=== PATIENT | female | born 1960 | race American Indian/Alaskan Native ===

== ENCOUNTER 2016-12-01 03:47 | Emergency (ER) | payer MEDICARE ==
[2016-12-01] MEDS ORDERED: PERCOCET 5/325 PO ONE (07:29)
--- NOTE | 2016-12-01 07:34 | Emergency Department Report ---
ED General Adult HPI - General Chief complaint: Pain General Stated complaint: ARTHRITIS PAIN Time Seen by Provider: 12/01/16 07:27 Source: patient, family Mode of arrival: Wheelchair Limitations: No Limitations - History of Present Illness -: Gradual Location: upper extremity, lower extremity Radiation: non-radiation Severity scale (0 -10): 10 Quality: constant Consistency: constant Improves with: medication (out of meds) Worsens with: none Associated Symptoms: denies other symptoms. denies: confusion, chest pain, cough, diaphoresis, headaches, loss of appetite, malaise, nausea/vomiting, rash , shortness of breath, syncope, weakness - Related Data Home Medications Medication Instructions Recorded Confirmed Last Taken Gabapentin [Neurontin] 600 mg PO BID 12/01/16 12/01/16 2 Weeks Ago HYDROcodone/APAP 10-325 [[place] 1 each PO Q6HR PRN 12/01/16 12/01/16 2 Weeks Ago 10/325] Oxycodone HCl [Oxycontin] 80 mg PO Q8HR 12/01/16 12/01/16 2 Weeks Ago Oxycodone HCl/Acetaminophen 1 each PO Q6HR PRN 12/01/16 12/01/16 2 Weeks Ago [Percocet 10/325 mg] methylPREDNISolone 4 mg PO DAILY 12/01/16 12/01/16 2 Weeks Ago Previous Rx's Medication Instructions Recorded Last Taken Type Gabapentin [Neurontin] 600 mg PO BID #28 tablet 12/01/16 Unknown Rx Oxycodone HCl/Acetaminophen 1 each PO Q12H PRN #20 tablet 12/01/16 Unknown Rx [Percocet 10/325 mg] predniSONE [Deltasone] 40 mg PO QDAY #10 tab 12/01/16 Unknown Rx Allergies Allergy/AdvReac Type Severity Reaction Status Date / Time hydrocodone Allergy Itching Verified 12/01/16 03:56 ED Review of Systems ROS: Stated complaint: ARTHRITIS PAIN Other details as noted in HPI Comment: All other systems reviewed and negative Constitutional: no symptoms reported, see HPI. denies: chills, diaphoresis, fever, malaise Eyes: as per HPI. denies: eye pain ENT: as per HPI. denies: ear pain, throat pain Respiratory: no symptoms reported, see HPI. denies: cough, orthopnea Cardiovascular: as per HPI. denies: chest pain, palpitations, dyspnea on exertion, orthopnea, edema, syncope, paroxysmal nocturnal dyspnea Endocrine: no symptoms reported, see HPI. denies: excessive sweating, flushing , intolerance to cold, intolerance to heat Gastrointestinal: as per HPI. denies: abdominal pain, nausea, vomiting Genitourinary: as per HPI. denies: urgency, dysuria Musculoskeletal: as per HPI. denies: back pain Skin: as per HPI. denies: rash, lesions Neurological: as per HPI. denies: headache, weakness Psychiatric: as per HPI. denies: anxiety, depression Hematological/Lymphatic: as per HPI. denies: easy bleeding ED Past Medical Hx - Past Medical History Previous Medical History?: Yes Hx Arthritis: Yes (RHEUMATOID / OSTEO) - Surgical History Past Surgical History?: Yes Additional Surgical History: TOE - Family History Family history: no significant - Social History Smoking Status: Never Smoker Substance Use Type: Alcohol - Medications Home Medications: Home Medications Medication Instructions Recorded Confirmed Last Taken Type Gabapentin [Neurontin] 600 mg PO BID 12/01/16 12/01/16 2 Weeks Ago History Gabapentin [Neurontin] 600 mg PO BID #28 tablet 12/01/16 Unknown Rx HYDROcodone/APAP 10-325 [[place] 1 each PO Q6HR PRN 12/01/16 12/01/16 2 Weeks Ago History 10/325] Oxycodone HCl [Oxycontin] 80 mg PO Q8HR 12/01/16 12/01/16 2 Weeks Ago History Oxycodone HCl/Acetaminophen 1 each PO Q12H PRN #20 tablet 12/01/16 Unknown Rx [Percocet 10/325 mg] Oxycodone HCl/Acetaminophen 1 each PO Q6HR PRN 12/01/16 12/01/16 2 Weeks Ago History [Percocet 10/325 mg] methylPREDNISolone 4 mg PO DAILY 12/01/16 12/01/16 2 Weeks Ago History predniSONE [Deltasone] 40 mg PO QDAY #10 tab 12/01/16 Unknown Rx ED Physical Exam - General Limitations: No Limitations General appearance: alert, other (tearful w pain) - Head Head exam: Present: atraumatic - Eye Eye exam: Present: normal appearance, PERRL - ENT ENT exam: Present: normal exam, normal orophraynx, mucous membranes moist - Neck Neck exam: Present: normal inspection - Respiratory Respiratory exam: Present: normal lung sounds bilaterally. Absent: respiratory distress, wheezes, rales, rhonchi, stridor, chest wall tenderness, accessory muscle use, decreased breath sounds, prolonged expiratory - Cardiovascular Cardiovascular Exam: Present: regular rate (90), normal heart sounds - GI/Abdominal GI/Abdominal exam: Present: soft - Rectal Rectal exam: Present: deferred - Extremities Exam Extremities exam: Present: tenderness, joint swelling, other (deformity of RA with nodules and severely arthritic hand bilateral. movement is slow and deliberate dt her chronic pain and being off meds about 2.5 w due to in family. she appears to be legitimate pain. has not been here before for RX. ). Absent: normal inspection, full ROM, normal capillary refill, pedal edema, calf tenderness - Back Exam Back exam: Absent: full ROM, paraspinal tenderness, vertebral tenderness - Neurological Exam Neurological exam: Present: alert, altered, oriented X3, CN II-XII intact, abnormal gait (debility) - Psychiatric Psychiatric exam: Present: normal mood, other (cooperative) - Skin Skin exam: Present: warm, dry, intact, normal color ED Course Vital Signs 12/01/16 12/01/16 03:56 07:43 Temperature 98.7 F Pulse Rate 99 H Respiratory 18 16 Rate Blood Pressure 119/78 O2 Sat by Pulse 100 Oximetry - Reevaluation(s) Reevaluation #1: 12/01/16 07:32 Discussed with attending. Very pleasant AA female who is debilitated w RA and OA. She sees pcp and pain management. Due to deaths in fam she has not been to them in over a month And is in generalized pain w RA/OA We discussed her pain contract. I informed her to call them Saturday to let them know she was here and see if they can see her before her scheduled visit in 2 weeks. VSS. HR 90 on exam. medicated here. Reevaluation #2: 12/01/16 0740 Reeval p pain med and pt reports some relief. Again reviewed poc and follow up w pcp and pain MD for ongoing care. She was pleasant and appreciative of assistance this am. Attending updated Pt home w family. ED Medical Decision Making - Medical Decision Making chronic pain out of meds discussed with MD see note. VSS. No CP. No SOB. Critical care attestation.: If time is entered above; I have spent that time in minutes in the direct care of this critically ill patient, excluding procedure time. ED Disposition Clinical Impression: Chronic pain, Rheumatoid arteritis, Osteoarthritis Disposition: TO HOME OR SELFCARE Is pt being admited?: No Does the pt Need Aspirin: No Condition: Stable Instructions: Osteoarthritis (ED), Rheumatoid Arthritis (ED) Additional Instructions: call MD on Saturday for follow up appnt sooner than your scheduled 2 week appnt. take meds as written. do not take more than prescribed. do not take meds and do anything that requires you to be alert. Prescriptions: Gabapentin [Neurontin] 600 mg PO BID #28 tablet Oxycodone HCl/Acetaminophen [Percocet 10/325 mg] 1 each PO Q12H PRN #20 tablet PRN Reason: Pain predniSONE [Deltasone] 40 mg PO QDAY #10 tab Referrals: PRIMARY CARE, [Primary Care Provider] - 3-5 Days Time of Disposition: 07:37
[2016-12-01] MEDS ORDERED: DELTASONE PO ONE (07:36)
[2016-12-01 08:50] VITALS: BP 116/74
== END 2016-12-01 08:40 | disposition home or self-care (01) ==
LOC: ED 03:47
DX: M06.9 Rheumatoid arthritis, unspecified (principal); M19.90 Unspecified osteoarthritis, unspecified site
CPT/HCPCS: 99282; J7512

== ENCOUNTER 2017-10-23 16:39 | Inpatient (IN) | payer MEDICARE ==
[2017-10-23] MEDS ORDERED: SODIUM CHLORIDE FLUSH SYRINGE 10 ML IV PRN (17:01)
[2017-10-23] MEDS ORDERED: MORPHINE IV PRN (17:01)
[2017-10-23] MEDS ORDERED: PROVENTIL IH PRN (17:01)
[2017-10-23] MEDS ORDERED: TYLENOL PO PRN (17:01)
[2017-10-23] MEDS ORDERED: ZOFRAN IV PRN (17:01)
--- NOTE | 2017-10-23 17:01 | History and Physical Report ---
History of Present Illness Chief complaint: My doctor told me to come in History of present illness: 57 YO Female with RA with deformity directly admitted at the request of Dr. Aldana. Pt was seen and evaluated by her PCP today and found to have abdominal pain and suspected pyelonephritis. Pt seen and evaluated upon arrival. Pt complains of bilateral flank pain, 10/10, constant, worsened with movement, not relieved with rest. PT denies fever, chills, CP, Palpitation, NVD, Hematuria, BRBPR, Trauma, productive cough, skin rash, or recent ill contacts. No reported nursing events. Past History Past Medical History: arthritis Past Surgical History: No surgical history Social history: single. denies: smoking, alcohol abuse, prescription drug abuse Family history: no significant family history (reviewed) Medications and Allergies Allergies Allergy/AdvReac Type Severity Reaction Status Date / Time hydrocodone Allergy Itching Verified 12/01/16 03:56 Home Medications Medication Instructions Recorded Confirmed Last Taken Type Gabapentin [Neurontin] 600 mg PO BID 12/01/16 12/01/16 2 Weeks Ago History ~11/17/16 Gabapentin [Neurontin] 600 mg PO BID #28 tablet 12/01/16 Unknown Rx HYDROcodone/APAP 10-325 [[place] 1 each PO Q6HR PRN 12/01/16 12/01/16 2 Weeks Ago History 10/325] ~11/17/16 Oxycodone HCl [Oxycontin] 80 mg PO Q8HR 12/01/16 12/01/16 2 Weeks Ago History ~11/17/16 Oxycodone HCl/Acetaminophen 1 each PO Q12H PRN #20 tablet 12/01/16 Unknown Rx [Percocet 10/325 mg] Oxycodone HCl/Acetaminophen 1 each PO Q6HR PRN 12/01/16 12/01/16 2 Weeks Ago History [Percocet 10/325 mg] ~11/17/16 methylPREDNISolone 4 mg PO DAILY 12/01/16 12/01/16 2 Weeks Ago History ~11/17/16 predniSONE [Deltasone] 40 mg PO QDAY #10 tab 12/01/16 Unknown Rx Review of Systems Constitutional: no weight loss, no weight gain, no fever, no chills Ears, nose, mouth and throat: no ear pain, no ear discharge, no tinnitis, no decreased hearing, no nose pain, no nasal congestion, no nasal discharge Breasts: no change in shape, no swelling, no mass Cardiovascular: no chest pain, no orthopnea, no palpitations, no rapid/ irregular heart beat Respiratory: no excessive sputum, no hemoptysis, no shortness of breath Gastrointestinal: abdominal pain, no nausea, no vomiting, no diarrhea, no hematemesis, no coffee ground emesis, no BRBPR, no melena, no loss of appetite Genitourinary Female: flank pain, no pelvic pain, no menorrhagia, no dysuria, no urinary frequency, no urgency, no stress incontinence Rectal: no pain, no incontinence, no bleeding Musculoskeletal: no neck stiffness, no neck pain, no shooting arm pain, no arm numbness/tingling, no low back pain Integumentary: no rash, no pruritis, no redness, no sores, no wounds, no jaundice, no boils Neurological: no transient paralysis, no paralysis, no weakness, no parathesias , no numbness, no tingling, no seizures, no syncope, no tremors Psychiatric: no anxiety, no memory loss, no change in sleep habits, no sleep disturbances, no insomnia, no hypersomnia Endocrine: no cold intolerance, no heat intolerance, no polyphagia, no excessive thirst Hematologic/Lymphatic: no easy bruising, no easy bleeding Allergic/Immunologic: no urticaria, no allergic rhinitis Exam - Constitutional General appearance: Present: no acute distress, well-nourished - EENT Eyes: Present: PERRL ENT: hearing intact, clear oral mucosa - Neck Neck: Present: supple, normal ROM - Respiratory Respiratory effort: normal Respiratory: bilateral: CTA - Cardiovascular Heart Sounds: Present: S1 & S2. Absent: rub, click - Extremities Extremities: pulses symmetrical, No edema Peripheral Pulses: within normal limits - Abdominal General gastrointestinal: Present: soft, non-tender, non-distended, normal bowel sounds Female genitourinary: Present: normal - Integumentary Integumentary: Present: clear, warm, dry - Musculoskeletal Musculoskeletal: gait normal, strength equal bilaterally - Psychiatric Psychiatric: appropriate mood/affect, intact judgment & insight - Neurologic Neurologic: CNII-XII intact, moves all extremities Results - Labs CBC & Chem 7: 10/23/17 18:22 10/23/17 18:22 Assessment and Plan - Patient Problems (1) Abdominal pain Current Visit: Yes Status: Acute Qualifiers: Abdominal location: generalized Qualified Code(s): R10.84 - Generalized abdominal pain Plan to address problem: CT ABdomen/Pelvis, Urinalysis, CBC, CMP, serial abdominal exam, Chest X ray, (2) Arthritis Current Visit: Yes Status: Acute Plan to address problem: pain control, supportive care (3) DVT prophylaxis Current Visit: Yes Status: Acute Plan to address problem: SCD to BLE while in bed
[2017-10-23 18:47] LABS: Basophils % (Auto) 0.3 % (0.0-1.8); Eosinophils % (Auto) 0.4 % (0.0-4.3); Hematocrit 36.5 % (30.3-42.9); Hemoglobin 11.7 gm/dl (10.1-14.3); Lymphocytes # (Auto) 0.9 K/mm3 (1.2-5.4); Mean Corpuscular HGB Conc 32 % (30-34); Mean Corpuscular Hemoglobin 29 pg (28-32); Mean Corpuscular Volume 89 fl (79-97); Monocytes % (Auto) 1.1 % (0.0-7.3); Platelet Count 154 K/mm3 (140-440); Red Blood Count 4.11 M/mm3 (3.65-5.03); Red Cell Distribution Width 17.1 % (13.2-15.2)
--- NOTE | 2017-10-23 18:58 | XRay Report ---
FINAL REPORT EXAM: XR CHEST 1V AP HISTORY: dypsnea TECHNIQUE: Frontal chest radiograph. PRIORS: None. FINDINGS: The cardiomediastinal silhouette is normal. No focal consolidation. Calcified left hilar lymph nodes and left pulmonary granuloma are seen. The lungs are hyperinflated. No pleural effusion. No pneumothorax. No acute osseous abnormality. Old deformity of the left humeral head likely related to prior trauma. IMPRESSION: No acute cardiopulmonary process. Findings of COPD.
[2017-10-23 19:06] LABS: Alanine Aminotransferase 15 units/L (7-56); Albumin 3.4 g/dL (3.9-5); BUN/Creatinine Ratio 14; Blood Urea Nitrogen 7 mg/dL (7-17); Hemolysis Index 18
[2017-10-23 19:07] LABS: Alanine Aminotransferase 15 units/L (7-56); Albumin 3.4 g/dL (3.9-5)
[2017-10-23 19:13] LABS: Bilirubin,Direct < 0.2 mg/dL (0-0.2)
[2017-10-23] MEDS: PERCOCET 5/325 PO PRN (23:42)
[2017-10-23] MEDS: SODIUM CHLORIDE FLUSH SYRINGE 10 ML IV SCH (23:43)
--- NOTE | 2017-10-24 04:03 | Cat Scan Report ---
FINAL REPORT PROCEDURE: CT ABDOMEN PELVIS W CON TECHNIQUE: Computerized axial tomography of the abdomen and pelvis was performed after the IV injection of iodinated nonionic contrast. HISTORY: ab pain COMPARISON: No prior studies are available for comparison. FINDINGS: Visualized lower thorax: No significant abnormality. Liver: Normal size and attenuation. Spleen: Normal size and attenuation. There are calcified granulomas in the spleen. Gallbladder and biliary system: Normal. Pancreas: Normal. Adrenals: Normal. Kidneys: There are bilateral kidney stones. There is no hydronephrosis.. GI tract: There is no bowel obstruction, colitis or enteritis. The appendix is normal.. Lymph nodes and mesentery: Normal. Vasculature: There is calcified plaque in the abdominal aorta. There is no aneurysm or dissection.. Bladder: Normal. Reproductive organs: There are calcified uterine fibroids.. Peritoneum: There is no ascites or free air, abscess or adenopathy.. Musculoskeletal structures: No significant abnormality. Other: None. IMPRESSION: There are bilateral kidney stones. There is no hydronephrosis.. There is no bowel obstruction, colitis or enteritis. The appendix is normal.. There is calcified plaque in the abdominal aorta. There is no aneurysm or dissection.. There are calcified uterine fibroids.. There is no ascites or free air, abscess or adenopathy..
[2017-10-24] MEDS: PERCOCET 5/325 PO PRN ×3 (07:50→21:14)
[2017-10-24 10:52] LABS: Bilirubin,Urine NEG (Negative); Blood,Urine NEG (Negative); Color,Urine Yellow (Yellow); Mucus,Urine FEW /HPF; Protein,Urine <15 mg/dL mg/dL (Negative); Urobilinogen,Urine < 2.0 mg/dL (<2.0)
[2017-10-24] MEDS ORDERED: NON-FORMULARY (Gabapentin [Neurontin] 600 MG) PO SCH (12:30)
[2017-10-24] MEDS ORDERED: METHYLPREDNISOLONE 4 MG PO SCH (12:30)
[2017-10-24] MEDS: NEURONTIN PO SCH ×2 (13:39→21:11)
[2017-10-24] MEDS: MEDROL PO SCH (13:39)
[2017-10-24] MEDS: SODIUM CHLORIDE FLUSH SYRINGE 10 ML IV SCH ×2 (13:40→21:12)
--- NOTE | 2017-10-24 14:42 | Progress Note ---
Assessment and Plan / Abdominal pain due to b/l nephrolithiasis CT ABdomen/Pelvis showed no hydronephrosis, Normal Urinalysis, cont supportive care with iv fluid and as needed pain meds /Rheumatoid Arthritis cont low dose home steroid pain control, supportive care / DVT prophylaxis SCD to BLE while in bed Brief History: Pt was seen and evaluated by dr simons in the clinic and found to have abdominal pain and suspected pyelonephritis. She was sent to ER for further evaluation. Radiological data: CT abdomen/pelvis Hospitalist Physical exam: GENERAL: well-developed AAF lying on bed appeared to be in no discomfort. HEENT: Normocephalic. Atraumatic. No conjunctival congestion or icterus. Patient has moist mucous membranes. NECK: Supple. Trachea midline. CHEST/LUNGS: Clear to auscultated bilaterally, breathing nonlabored. No wheezes crackles or rhonchi. HEART/CARDIOVASCULAR: Regular in rate and rhythm. S1 and S2 positive. ABDOMEN: Abdomen is soft, b/l flank tenderness. Patient has normal bowel sounds. SKIN: There is no rash. Warm and dry. NEURO: No focal motor deficit. Follows command. MUSCULOSKELETAL: b/l UE joint deformint mainly on hand EXTRIMITY: No edema, no cyanosis or clubbing. PSYCH: Cooperative. Subjective Date of service: 10/24/17 Interval history: Patient seen and examined. Medical records and medication list reviewed. No acute event overnight noted by the RN. Patient denies any chest pain or difficulty breathing. Patient is tolerating diet but has b/l lumber pain Discussed plan of care at bedside with patient. Objective - Constitutional Vitals: Vital Signs - 12hr 10/24/17 10/24/17 07:52 08:45 Temperature 98.2 F Pulse Rate 89 Respiratory 19 Rate Blood Pressure 128/86 O2 Sat by Pulse 98 97 Oximetry - Labs CBC & Chem 7: 10/23/17 18:22 10/25/17 11:20 Labs: Abnormal lab results 10/23/17 10/23/17 10/23/17 Range/Units 18:22 18:22 18:22 WBC 4.0 L (4.5-11.0) K/mm3 RDW 17.1 H (13.2-15.2) % Lymph # 0.9 L (1.2-5.4) K/mm3 Seg Neutrophils % 76.2 H (40.0-70.0) % Creatinine 0.5 L (0.7-1.2) mg/dL Albumin 3.4 L 3.4 L (3.9-5) g/dL Ur Specific [place] (1.003-1.030) 10/24/17 Range/Units 10:10 WBC (4.5-11.0) K/mm3 RDW (13.2-15.2) % Lymph # (1.2-5.4) K/mm3 Seg Neutrophils % (40.0-70.0) % Creatinine (0.7-1.2) mg/dL Albumin (3.9-5) g/dL Ur Specific [place] 1.049 H (1.003-1.030)
[2017-10-25] MEDS: PERCOCET 5/325 PO PRN ×2 (01:20→10:23)
[2017-10-25 08:05] VITALS: BP 124/78
[2017-10-25] MEDS: NEURONTIN PO SCH (10:13)
[2017-10-25] MEDS: MEDROL PO SCH (10:13)
[2017-10-25] MEDS: SODIUM CHLORIDE FLUSH SYRINGE 10 ML IV SCH (10:14)
--- NOTE | 2017-10-25 10:22 | Query- Abdominal Pain ---
Deabryant Hodge___Sha Date:____10/25/2017 Rejector/CDS:___meg Phone#:_[phone] Exercise your independent professional judgment when responding to this query. Questions asked do not imply that a particular answer is desired or expected. We greatly appreciate your clarification on this issue. Clinical Documentation States: 57 YO Female with RA with deformity directly admitted at the request of Dr. Aldana. Pt was seen and evaluated by her PCP today and found to have abdominal pain and suspected pyelonephritis. Taken from H&P note () on 10/23/17. Assessment and Plan: Abdominal pain Clinical Findings Show: Ct scan Impression shows bilateral kidney stones with no hydronephrosis and calcified uterine fibroids. The rest is unremarkable. Please specify the etiology of Abdominal Pain: [ ]Appendicitis, Acute [ ] Intestinal Obstruction [ ]Diverticulitis, Acute [ ] Uremia [ ]Pancreatitis, Acute [ ] Thoracic Aortic Aneurysm [ ]Peritonitis [ ] Urinary Tract Infection [ ]Ulcerative Colitis [ ] Pelvic Inflammatory Disease [ ]Cholecystitis [ ] Cystitis [ ]Cholangitis [ ] Pyelonephritis [ ]Viral Gastroenteritis [ ] Renal Stones [ ]Gastroenteritis, Bacterial [ ] Retroperitoneal Infection [ ]Gastritis [ ] Shingles [ ]Peritoneal Irritation [ ] Mesenteric Artery Occlusion [ ]Peritoneal Inflammation [ ] Trauma(please specify): _ [ ]Peritoneal Infection [ ] Irritable Bowel Syndrome [ ]Constipation [ ] Hernia [ ]GERD [ ] Cholelithiasis [ ]Peptic Ulcer [ ] Vascular Insufficiency of Intestine [ ]Diabetic Ketoacidosis [ ]Cancer [ ]Other: [ ]Unable to determine [ ]Comment/Explanation: Present on Admission: [ ] Yes (Y) [ ] Clinically undeterminable (W) [ ] No(N) Please also document response in your Progress Notes and/or Discharge Summary and indicate if the condition was present on admission. MALOUD
--- NOTE | 2017-10-25 10:26 | Query- Nutrition ---
Haris Hodge____Sha Date:___10/25/2017 Commission Broker/CDS:___meg Phone#:__[phone] Exercise your independent professional judgment when responding to query. Questions asked do not imply a particular answer is desired or expected. We greatly appreciate your clarification on this issue. Clinical Documentation States: 57 YO Female with RA with deformity directly admitted at the request of Dr. Aldana. Pt was seen and evaluated by her PCP today and found to have abdominal pain and suspected pyelonephritis. Taken from H&P note () on 10/23/17. Assessment and Plan: Abdominal pain Arthritis Clinical Findings Show: 10/23/17 Sr.Albumin 3.4 L Please select the most appropriate option 3 [] Mild Malnutrition [] Mild - Moderate Malnutrition [] Moderate - Severe Malnutrition [] Severe Malnutrition Serum Albumin 2.8 to 3.4 g/dl or Pre-albumin 5 to 17 mg/dl1,2 Inadequate nutritional intake1,2,3,4 NPO > 5 days Weight loss: 5% in 1 month or 7.5% in 3 months or 10% in 6 months1, 3,4 BMI 16 to 18.4 or Weight <90% of ideal body weight1,2,3,4 Serum Albumin < 2.8 g/ dl1,2 Lymphocytes < 1500/ L2 Inadequate nutritional intake3, high stress e.g. major trauma, sepsis,pancreatitis, hummel etc. Decubitus ulcers1,2, , skin breakdown2, easy hair pluckability2 Weight <80% standard for height2 Triceps skin fold <3 mm2 Mid-arm muscle circumference <15 cm2 Creatinine-height index <60% standard2 [ ] Cachexia [ ] Emaciated w/Malnutrition [ ] Other: [ ] Unable to determine [ ] Comment/Explanation: Present on Admission: [ ] Yes (Y) [ ] Clinically undeterminable (W) [ ] No ( N) Please also document response in your Progress Notes and/or Discharge Summary and indicate if the condition was present on admission. MTDD
[2017-10-25] MEDS ORDERED: NACL 0.9% 1000 ML 1,000 ML IV SCH (11:00)
[2017-10-25 11:54] LABS: BUN/Creatinine Ratio 15; Blood Urea Nitrogen 9 mg/dL (7-17); Calcium 8.8 mg/dL (8.4-10.2); Hemolysis Index 10
--- NOTE | 2017-10-25 14:51 | Discharge Summary ---
Providers - Providers Date of Admission: 10/23/17 17:47 Date of discharge: 10/25/17 Attending physician: BAUTISTA VILLASEÑOR Primary care physician: HOWIE SIMONS Hospitalization Hospital course: Brief History: Pt was seen and evaluated by dr simons in the clinic and found to have abdominal pain and suspected pyelonephritis. She was sent to ER for further evaluation. Discharge diagnosis: / Abdominal pain due to b/l nephrolithiasis CT ABdomen/Pelvis showed no hydronephrosis, Normal Urinalysis, cont supportive care with iv fluid and as needed pain meds /Rheumatoid Arthritis cont low dose home steroid pain control, supportive care / DVT prophylaxis SCD to BLE while in bed Radiological data: CT abdomen/pelvis Hospitalist Physical exam: GENERAL: well-developed AAF lying on bed appeared to be in no discomfort. HEENT: Normocephalic. Atraumatic. No conjunctival congestion or icterus. Patient has moist mucous membranes. NECK: Supple. Trachea midline. CHEST/LUNGS: Clear to auscultated bilaterally, breathing nonlabored. No wheezes crackles or rhonchi. HEART/CARDIOVASCULAR: Regular in rate and rhythm. S1 and S2 positive. ABDOMEN: Abdomen is soft, b/l flank tenderness. Patient has normal bowel sounds. SKIN: There is no rash. Warm and dry. NEURO: No focal motor deficit. Follows command. MUSCULOSKELETAL: b/l UE joint deformint mainly on hand EXTRIMITY: No edema, no cyanosis or clubbing. PSYCH: Cooperative. Disposition: DC-01 TO HOME OR SELFCARE Time spent for discharge: 32 minutes Core Measure Documentation - Palliative Care Palliative Care/ Comfort Measures: Not Applicable - Core Measures Any of the following diagnoses?: none Exam - Constitutional Vitals: Temp Pulse Resp BP Pulse Ox 98.0 F 87 19 124/78 99 10/25/17 07:58 10/25/17 07:58 10/25/17 07:58 10/25/17 07:58 10/25/17 07:58 Plan Activity: advance as tolerated Weight Bearing Status: Non-Weight Bearing Diet: low fat, low salt Follow up with: HOWIE SIMONS MD [Primary Care Provider] - 7 Days
== END 2017-10-25 16:29 | disposition home health service (06) | DRG 694 ==
LOC: 3A 16:39 → UNDOADMIN 16:39 → 3A 17:47
PROVIDERS: ADMIT Internal Medicine; ATTEND Internal Medicine
DX: N20.0 Calculus of kidney (principal); M06.9 Rheumatoid arthritis, unspecified
CPT/HCPCS: 36415; 71045; 74177; 80048; 80053; 80074; 81001; 85025; 87116; 93005; 93010; 99406; J2405; J7509; Q9967

== ENCOUNTER 2018-08-01 09:33 | Outpatient (CLI) | payer MEDICARE, OTHER | END 2018-08-01 09:34 | disposition home or self-care (01) | LOC: LABHHL 09:33 | PROVIDERS: ATTEND Surgery | DX: N63.23 Unspecified lump in the left breast, lower outer quadrant (principal); K21.9 Gastro-esophageal reflux disease without esophagitis; M19.90 Unspecified osteoarthritis, unspecified site; F17.200 Nicotine dependence, unspecified, uncomplicated | CPT/HCPCS: 88305; 88341; 88342; 88368 ==

== ENCOUNTER 2018-08-15 11:05 | Outpatient (CLI) | payer MEDICARE ==
--- NOTE | 2018-08-15 12:39 | History and Physical Report ---
History of Present Illness Date of examination: 08/15/18 Chief complaint: lt. breast mass Medications and Allergies Allergies Allergy/AdvReac Type Severity Reaction Status Date / Time hydrocodone Allergy Itching Verified 12/01/16 03:56 morphine AdvReac Nausea Verified 10/24/17 08:52 Home Medications Medication Instructions Recorded Confirmed Last Taken Type Gabapentin [Neurontin] 600 mg PO BID #28 tablet 10/25/17 Unknown Rx Oxycodone HCl/Acetaminophen 1 each PO Q12H PRN #7 tablet 10/25/17 Unknown Rx [Percocet 10/325 mg] predniSONE [Deltasone] 40 mg PO QDAY #10 tab 10/25/17 Unknown Rx
--- NOTE | 2018-08-15 12:41 | Procedure Note ---
Date of procedure: 08/15/18 Pre-op diagnosis: lt breast mass Post-op diagnosis: same Procedure: u/s guided lt breast bx Findings: solid tissue Anesthesia: local Surgeon: GARRISON SALAZAR Estimated blood loss: none Pathology: list (lt breast tissue) Specimen disposition: to lab Condition: stable Disposition: same day
--- NOTE | 2018-08-15 13:49 | Mammography Report ---
Ultrasound-guided left breast biopsy, marker placement, 2 view mammogram: Breast imaging demonstrates an irregular shaped hypoechoic mass in the 7:00 location 2 cm from the nipple measuring approximately 3 cm. The skin was cleansed and draped. 1% lidocaine and 2% lidocaine with epinephrine utilized for local anesthesia. A 13-gauge guide was introduced under ultrasound guidance through which a 14-gauge disposable Bard biopsy device was used to take multiple specimens through the targeted lesion. A marker was left in place. The entrance site was bandaged with a waterseal. The axilla was imaged demonstrating several enlarged abnormal appearing lymph nodes. The area was draped and cleansed and 1% lidocaine used for local anesthesia. Through a small skin nicola an 18-gauge Achieve biopsy device was utilized in attempts to biopsy one of the lymph nodes. Due to excessive mobility of the lymph nodes and the adjacent vascular structures I was unable to safely penetrate any of the identified lymph nodes for biopsy. A two-view orthogonal mammogram confirmed positioning of the marker and a spiculated and irregular shaped mass in the inferior breast. There is no patient complications. The patient was given followup instructions and discharged. Impression: 1. Successful breast biopsy. 2. Unsuccessful axillary lymph node biopsy.
== END 2018-08-15 11:06 | disposition home or self-care (01) ==
LOC: SPVWC 11:05
PROVIDERS: ATTEND Surgery
DX: C50.312 Malignant neoplasm of lower-inner quadrant of left female breast (principal); F17.210 Nicotine dependence, cigarettes, uncomplicated; M19.90 Unspecified osteoarthritis, unspecified site; K21.9 Gastro-esophageal reflux disease without esophagitis; M06.9 Rheumatoid arthritis, unspecified; Z79.899 Other long term (current) drug therapy; Z88.5 Allergy status to narcotic agent; Z88.8 Allergy status to other drugs, medicaments and biological substances
CPT/HCPCS: 38505; 76942; 88305; 88341; 88342; 88368

== ENCOUNTER 2018-09-03 12:40 | Outpatient (CLI) | payer MEDICARE ==
--- NOTE | 2018-09-04 09:04 | Magnetic Resonance Report ---
BILATERAL BREAST MRI WITHOUT AND WITH CONTRAST: 09/03/18 12:40:00 CLINICAL: Newly diagnosed left breast cancer. Status post ultrasound guided needle biopsy of a left breast mass on 08/15/18. Pathology: Invasive ductal carcinoma grade I, ER 100%, MO 0%, Ki-67 20%, HER-2 2+ positive, FISH pending. COMPARISON:07/30/18 bilateral mammogram and left breast ultrasound. TECHNIQUE: Axial 1.0-mm T1 without, axial high resolution 2.0-mm T2 and axial 1.0-mm dynamic Vibrant high-resolution postcontrast T1 fat saturation sequences on a 1.5 Lou magnet. The examination was performed with an 8 channel dedicated Sentinelle breast coil. Post processing with CAD and subtraction was performed on an Geron workstation. 10.0 cc of Multihance was injected without incident for the contrast portion of the exam. Consent was obtained prior to the administration of the contrast. FINDINGS: Right: Minimal background parenchymal enhancement. No mass or suspicious enhancement. Right axillary lymph nodes are not imaged because of body habitus. Left: Minimal background parenchymal enhancement. An irregular enhancing mass located at 6 o'clock 2 cm from the nipple and 4.4 cm from the chest wall corresponds to the known cancer. It measures 3.1 x 2.6 x 2.2 cm and demonstrates heterogeneous enhancement with mixed kinetics, 238% peak enhancement and 24% type III washout. No other mass or suspicious enhancement. The left nipple is retracted. Axillary lymph nodes are imaged because of body habitus. IMPRESSION: 1. A 3.1 cm known left breast cancer at 6 o'clock 2 cm from the nipple. 2. No other lesions are identified in either breast. 3. Axillary lymph nodes are not evaluated on this exam because of body habitus. BI-RADS 6 -- Known Cancer
== END 2018-09-03 12:41 | disposition home or self-care (01) ==
LOC: SPVIMAG 12:40
PROVIDERS: ATTEND Surgery
DX: C50.512 Malignant neoplasm of lower-outer quadrant of left female breast (principal); F17.200 Nicotine dependence, unspecified, uncomplicated; M19.90 Unspecified osteoarthritis, unspecified site; K21.9 Gastro-esophageal reflux disease without esophagitis
CPT/HCPCS: A9577; C8908; 77049

== ENCOUNTER 2018-09-05 11:52 | Outpatient (CLI) | payer MEDICARE ==
[2018-09-05 13:12] LABS: Blood Urea Nitrogen 10 mg/dL (7-17)
--- NOTE | 2018-09-05 16:24 | Cat Scan Report ---
CT CHEST WITH CONTRAST: 09/05/18 11:52:00 CLINICAL: Newly diagnosed left breast cancer. Comparison: None. TECHNIQUE: Volumetric acquisition and 1.25 mm scan reconstructions without contrast and after the uneventful intravenous injection of 100cc Omnipaque 300. Consent was obtained prior to the administration of contrast. FINDINGS: The thyroid is enlarged and the left lobe is larger than the right. A 2.4 x 1.5 cm nodule of the left inferior thyroid demonstrates nodular enhancement postcontrast. Acute additional tiny thyroid nodules. Moderate multilobar bullous emphysema. A 7 mm calcified granuloma of the left upper lobe. No other pulmonary nodule or mass.No pleural effusion. Normal heart and pulmonary vessels. Normal heart and aorta. No hilar or mediastinal lymphadenopathy. No pleural effusion. Normal trachea and esophagus. A 3.2 cm retroareolar left breast mass with a biopsy clip. Left axillary lymph node lymphadenopathy with a dominant 1.7 x 1.0 cm lymph node. The upper abdomen is unremarkable. No suspicious bone lesions. There is deformity of the left humeral head appears to be an old fracture deformity. The entire liver is included on the exam and is normal. Normal adrenal glands. IMPRESSION: 1. A 2.4 cm left thyroid nodule with suspicious nodular enhancement. Recommend thyroid ultrasound for further evaluation. 2. Left breast cancer and suspicious left axillary lymphadenopathy. 3. No evidence of pulmonary, hepatic or skeletal metastasis.
== END 2018-09-05 11:53 | disposition home or self-care (01) ==
LOC: CT 11:52
PROVIDERS: ATTEND Internal Medicine Hematology & Oncology
DX: C50.512 Malignant neoplasm of lower-outer quadrant of left female breast (principal); E04.1 Nontoxic single thyroid nodule; K21.9 Gastro-esophageal reflux disease without esophagitis; M19.90 Unspecified osteoarthritis, unspecified site
CPT/HCPCS: 36415; 71270; 82565; 84520

== ENCOUNTER 2019-03-16 14:29 | Outpatient (CLI) | payer MEDICARE ==
--- NOTE | 2019-03-16 15:27 | Mammography Report ---
DIGITAL DIAGNOSTIC MAMMOGRAM WITH CAD, -- 03/16/2019 INDICATION: Follow-up of the known cancer. TECHNIQUE: Digital left mammographic imaging was performed. This examination was interpreted with the benefit of Computer-aided Detection analysis. COMPARISON: 07/31/2018 FINDINGS: Breast Density: There are scattered areas of fibroglandular density. The biopsy proven spiculated subareolar cancer now measures 3.4 x 2.9 x 1.7 cm. This compares to 3.3 x 2.7 x 2.8 cm on the last exam. No new finding. Scattered benign calcifications. IMPRESSION: A known left breast cancer without significant change in size mammographically. Follow up recommendation: Surgical consult BI-RADS Category 6: Known Biopsy-Proven Malignancy. A "normal" or negative report should not discourage follow up or biopsy of a clinically significant f inding. A written summary of these findings will be mailed to the patient. The patient will be entered into a mammography reporting system which will generate a reminder letter for the patient's next appointmen t at the appropriate interval. According to the [employer], yearly mammograms are recommended starting at age 40 and continuing as long as a woman is in good health. Breast MRI is recommended for women with an karen roximately 20-25% or greater lifetime risk of breast cancer, including women with a strong family his tory of breast or ovarian cancer and women who have been treated for Hodgkin's disease. Signer Name: Baron Peacock MD Signed: 03/16/2019 3:22 PM Workstation Name: [id number]
== END 2019-03-16 14:30 | disposition home or self-care (01) ==
LOC: SPVWC 14:29
PROVIDERS: ATTEND Internal Medicine Hematology & Oncology
DX: C50.512 Malignant neoplasm of lower-outer quadrant of left female breast (principal); I10 Essential (primary) hypertension; K21.9 Gastro-esophageal reflux disease without esophagitis; F17.210 Nicotine dependence, cigarettes, uncomplicated; M06.9 Rheumatoid arthritis, unspecified

== ENCOUNTER 2021-06-16 11:36 | Emergency (ER) | payer MEDICARE ==
[2021-06-16] MEDS ORDERED: KETAMINE 500 MG/5 ML VIAL MDV IM STA (12:02)
--- NOTE | 2021-06-16 12:09 | Emergency Department Report ---
ED General Adult HPI - General Chief complaint: Pain General Stated complaint: PAIN Time Seen by Provider: 06/16/21 11:42 Source: family, EMS (Verbal report received from emergency medical services. EMS documentation not available at time of chart dictation ), RN notes reviewed, old records reviewed Mode of arrival: Stretcher Limitations: Altered Mental Status, Physical Limitation - History of Present Illness Initial comments: The patient was evaluated in the emergency department for symptoms described in the history of present illness. He/she was evaluated in the context of the global COVID-19 pandemic, which necessitated consideration that the patient might be at risk for infection with the virus that causes COVID-19. Institutional protocols and algorithms that pertain to the evaluation of patients at risk for COVID-19 are in a state of rapid change based on information released by regulatory bodies including the CDC and federal and sta organizations. These policies and algorithms were followed during the patient's care in the emergency department. Please note that these policies, procedures and recommendations changed on a rapid basis. During the history and physical examination, I am chaperoned by nurse Caitlin, and further accompanied by charge nurse Alba Santos. The patient is a 61-year-old female. She has a history of debility, breast cancer, sacral wound, left ear wound, and right ankle wound. She also has an indwelling [place] catheter. She is currently being followed by [facility]; [phone]. As per her son, Mr. Chapincito Foster; [phone] the patient has assigned to DO NOT RESUSCITATE DO NOT INTUBATE at home. He does not have this paperwork on him. He is adamant that the patient is a DO NOT RESUSCITATE DO NOT INTUBATE. The patient is sent to the emergency room "because she keeps on screaming." As per son and EMS, patient has been crying out for the past couple hours. Contacted her hospice group, and they recently started her on a Duragesic patch. Patient son is interested in comfort and palliative interventions at this time. I did offer admission for fluids, antibiotics, this is likely medically futile. I did advise that patient is likely going to shortly. The patient's son is awake, alert, oriented, exhibits decision-making capacity and is of sound mind. He is interested in palliation, comfort, and pain control. Patient to be medicated with one-time dose of ketamine 15 mg IM. Patient has terminal cancer, contracture, disability, failure to thrive, and as per discussion with son, goals of care are for comfort, palliation, and pain control. -: This morning Severity scale (0 -10): 10 - Related Data Home Medications Medication Instructions Recorded Confirmed Last Taken Anastrozole 1 mg PO DAILY 01/08/19 01/08/19 Unknown Aspirin 81 mg PO DAILY 01/08/19 01/08/19 01/08/19 Meloxicam 15 mg PO DAILY 01/08/19 01/08/19 01/08/19 Omeprazole 40 mg PO DAILY 01/08/19 01/08/19 Unknown Solifenacin Succinate [Vesicare] 10 mg PO DAILY 01/08/19 01/08/19 Unknown metHOTREXate(DOSE WEEKLY ONLY) 20 mg PO 1XW 01/08/19 01/08/19 Unknown [metHOTREXate (DOSE WEEKLY ONLY)] predniSONE 10 mg (6-Day Pack, 21 01/08/19 Unknown Tabs) Previous Rx's Medication Instructions Recorded Last Taken Type Gabapentin [Neurontin] 600 mg PO BID #28 tablet 10/25/17 01/08/19 Rx Oxycodone HCl/Acetaminophen 1 each PO Q12H PRN #7 tablet 10/25/17 Unknown Rx [Percocet 10/325 mg] predniSONE [Deltasone] 40 mg PO QDAY #10 tab 10/25/17 Unknown Rx Allergies Allergy/AdvReac Type Severity Reaction Status Date / Time hydrocodone Allergy Itching Verified 06/16/21 11:48 morphine AdvReac Nausea Verified 06/16/21 11:48 ED Review of Systems ROS: Stated complaint: PAIN Other details as noted in HPI Comment: Unobtainable due to pts medical conditions Constitutional: malaise Skin: rash, lesions Neurological: weakness ED Past Medical Hx - Past Medical History Previous Medical History?: Yes Hx Hypertension: Yes (? PATIENT STATES NO-CC SAYS YES) Hx Congestive Heart Failure: No Hx Diabetes: No Hx GERD: Yes Hx Arthritis: Yes Hx Headaches / Migraines: Yes (MIGRAINES) Hx Asthma: No Hx COPD: No Hx Tuberculosis: No - Surgical History Past Surgical History?: Yes Hx Breast Surgery: Yes (BIOPSY X 2) Additional Surgical History: TOE - Social History Smoking Status: Current Every Day Smoker - Medications Home Medications: Home Medications Medication Instructions Recorded Confirmed Last Taken Type Gabapentin [Neurontin] 600 mg PO BID #28 tablet 10/25/17 01/08/19 Rx Oxycodone HCl/Acetaminophen 1 each PO Q12H PRN #7 tablet 10/25/17 Unknown Rx [Percocet 10/325 mg] predniSONE [Deltasone] 40 mg PO QDAY #10 tab 10/25/17 Unknown Rx Anastrozole 1 mg PO DAILY 01/08/19 01/08/19 Unknown History Aspirin 81 mg PO DAILY 01/08/19 01/08/19 01/08/19 History Meloxicam 15 mg PO DAILY 01/08/19 01/08/19 01/08/19 History Omeprazole 40 mg PO DAILY 01/08/19 01/08/19 Unknown History Solifenacin Succinate [Vesicare] 10 mg PO DAILY 01/08/19 01/08/19 Unknown History metHOTREXate(DOSE WEEKLY ONLY) 20 mg PO 1XW 01/08/19 01/08/19 Unknown History [metHOTREXate (DOSE WEEKLY ONLY)] predniSONE 10 mg (6-Day Pack, 21 01/08/19 Unknown History Tabs) ED Physical Exam - General Limitations: Altered Mental Status, Physical Limitation General appearance: anxious, in distress - Head Head exam: Present: normocephalic - Eye Eye exam: Present: normal appearance, EOMI - ENT ENT exam: Present: mucous membranes dry, normal external ear exam, other (There is a macerated left ear wound noted) - Neck Neck exam: Present: normal inspection, full ROM. Absent: tenderness, meningismus - Respiratory Respiratory exam: Present: accessory muscle use. Absent: respiratory distress, rales, rhonchi, stridor - Cardiovascular Cardiovascular Exam: Present: normal rhythm, tachycardia, normal heart sounds. Absent: bradycardia, irregular rhythm, systolic murmur, diastolic murmur, rubs, gallop - GI/Abdominal GI/Abdominal exam: Present: soft, other (Scaphoid abdomen is no). Absent: distended, tenderness, guarding, rebound, rigid, pulsatile mass - Rectal Rectal exam: Absent: normal inspection (Large sacral wound is noted, with crepitus appreciated) - Extremities Exam Extremities exam: Present: other (1+ radial pulses bilaterally, 1+ femoral pulses bilaterally). Absent: normal inspection (Contracted upper and lower extremities. There is an open wound to the right medial aspect of the right ankle.) - Back Exam Back exam: Absent: normal inspection (Scoliosis is appreciated), tenderness, CVA tenderness (R), CVA tenderness (L), paraspinal tenderness - Neurological Exam Neurological exam: Present: altered, other (The patient is awake. The patient is yelling out. The patient is moving 4 extremities) - Psychiatric Psychiatric exam: Present: anxious - Skin Skin exam: Present: warm ED Course Vital Signs 06/16/21 06/16/21 11:38 18:43 Temperature 98.7 F 98.9 F Pulse Rate 160 H 75 Respiratory 18 18 Rate Blood Pressure 98/70 124/78 [Left] O2 Sat by Pulse 90 99 Oximetry - Reevaluation(s) Reevaluation #1: 06/16/21 12:14 Differential diagnosis, include but not limited to: End-stage cancer, breakthrough pain, encounter for discussion of advanced directives and goals of care Assessment and plan: 61-year-old female, on home hospice, with a report of DO NOT RESUSCITATE, DO NOT INTUBATE with son at the bedside, who is likely experiencing end-stage cancer. She is febrile rectally to 100.4 degrees, tachycardic and hypotensive. She is very slender in stature. Extensive discussion had with patient's son to clarify goals of care and advanced directives. I did offer admission for fluids, antibiotics, and x-ray imaging, but these are likely futile, given that this patient is end-stage. Patient son understands that the patient is terminal, and will likely imminently. He is of sound mind and exhibits decision-making capacity. Goals of care are for comfort and palliation. Multiple phone calls were also made to [facility] [phone]. I specifically discussed the patient's case with their social work coordinator, Ms. Karen Cheung. The farm field manager for the hospice group suggested that this patient may have a power of divorce attorney. However, the son is adamant that there is no sign of power of divorce attorney. He is further adamant that the patient does not have a sister and that the patient only has children, and that the patient's son, Mr. Chapinctio Foster is the primary medical decision maker. Multiple phone calls and conversations were had with the hospice group, and they informed me that will they do not have a signed power of divorce attorney on file or record, this patient has been in their care for 8 months. Therefore, patient's son is the medical decision maker given the information that is provided to be an available at this time. Patient is medicated with ketamine x2 for pain. Patient son is counseled to closely follow-up with the patient's outpatient palliative care provider. 06/16/21 12:41 06/16/21 12:47 06/16/21 12:49 ED Medical Decision Making - Lab Data Vital Signs 06/16/21 11:38 Temperature 98.7 F Pulse Rate 160 H Respiratory 18 Rate Blood Pressure 98/70 [Left] O2 Sat by Pulse 90 Oximetry Critical Care Time: Yes Critical care time in (mins) excluding proc time.: 35 Critical care attestation.: If time is entered above; I have spent that time in minutes in the direct care of this critically ill patient, excluding procedure time. ED Disposition Clinical Impression: Pain, Debility, Wound of sacral region, Ankle wound, Ear wound, Advance directive indicates patient wish for [id number] resuscitation status Disposition: 01 HOME / SELF CARE / HOMELESS Is pt being admited?: No Does the pt Need Aspirin: No Condition: Poor Additional Instructions: Please continue current outpatient medications. As we discussed, patient likely experiencing end-stage cancer pain, and is likely terminally ill. Patient will continue to have pain, we therefore recommend close outpatient follow-up with your palliative care/pain physician for aggressive up escalation of analgesia to provide comfort. Should the patient's family elected for change in goals of care, or advanced directives, please return to the emergency room right away. Follow-up as soon as possible with your outpatient pain/palliative care physician/primary care physician Referrals: [facility] [Provider Group] - 3-5 Days
[2021-06-16] MEDS ORDERED: KETAMINE 500 MG/5 ML VIAL MDV IV ONE (12:46)
[2021-06-16] MEDS ORDERED: HYDROmorphone 1 MG/1 ML INJ IV ONE ×2 (14:06→17:31)
[2021-06-16 18:44] VITALS: BP 124/78
== END 2021-06-16 18:43 | disposition home or self-care (01) ==
LOC: ED 11:36
DX: S31.000A Unspecified open wound of lower back and pelvis without penetration into retroperitoneum, initial encounter (principal); S01.302A Unspecified open wound of left ear, initial encounter; S91.001A Unspecified open wound, right ankle, initial encounter; K21.9 Gastro-esophageal reflux disease without esophagitis; I10 Essential (primary) hypertension; G43.909 Migraine, unspecified, not intractable, without status migrainosus; F17.200 Nicotine dependence, unspecified, uncomplicated; Z88.5 Allergy status to narcotic agent; Z79.899 Other long term (current) drug therapy; X58.XXXA Exposure to other specified factors, initial encounter; Y93.89 Activity, other specified; Y92.89 Other specified places as the place of occurrence of the external cause; Y99.8 Other external cause status
CPT/HCPCS: 96372; 96374; 96375; 96376; 99283; J1170; J3490